=== PATIENT | female | born 1940 | race Caucasian/White ===

== ENCOUNTER → 2017-01-22 | Day surgery (SDC) | payer MEDICARE, BC ==
[~2017-01-22] MED LIST: PROPOFOL 500 MG/50 ML EMU IV ONE
[2017-01-22 10:19] VITALS: BP 156/80; PULSE 68; RESP 18; TEMP 97.6; O2SAT 95
== END | disposition home or self-care (01) | DRG 951 ==
LOC: SURG 08:09
PROVIDERS: ATTEND Surgery
DX: Z12.11 Encounter for screening for malignant neoplasm of colon (principal); K57.30 Diverticulosis of large intestine without perforation or abscess without bleeding; Z86.010 Personal history of colon polyps
CPT/HCPCS: J2704